=== PATIENT | female | born 1960 | race Caucasian/White ===

== ENCOUNTER → 2018-09-11 | Outpatient (REF) ==
[~2018-09-11] MED LIST: ASACOL400 MG PO; TRAMADOL HCL50 MG PO
[2018-09-11 09:41] LABS: CHOLESTEROL HDL RATIO 3.6 (<4.4 (CALC))
== END | disposition home or self-care (01) | DRG 951 ==
LOC: LAB 08:25
PROVIDERS: ATTEND Family Medicine
DX: Z02.6 Encounter for examination for insurance purposes (principal)